=== PATIENT | female | born 1960 | race Asian ===

== ENCOUNTER 2024-03-24 12:31 | Emergency (ER) | payer BC, OTHER ==
[~2024-03-24] VITALS: Ht 160 cm; Wt 73.3 kg
[2024-03-24 13:49] VITALS: BP 147/52; PULSE 61; RESP 18; TEMP 97.7; O2SAT 95
[2024-03-24] MEDS: ACETAMINOPHEN 500 MG TAB PO ONE (14:19)
[2024-03-24] MEDS ORDERED: TRAM-626 PO (14:35)
== END 2024-03-24 14:37 | disposition home or self-care (01) ==
LOC: ER 12:31
DX: S52.502A Unspecified fracture of the lower end of left radius, initial encounter for closed fracture (principal); E78.5 Hyperlipidemia, unspecified; W18.09XA Striking against other object with subsequent fall, initial encounter; Y93.89 Activity, other specified; Y92.89 Other specified places as the place of occurrence of the external cause; Y99.8 Other external cause status
CPT/HCPCS: 29125; 73060; 73110